=== PATIENT | female | born 1980 | race Hispanic/Latino ===

== ENCOUNTER 2017-07-15 09:15 | Day surgery (SDC) | payer BC ==
[2017-07-09 13:51] VITALS: BMI 21.0
[2017-07-15 10:04] LABS: HEMOGLOBIN 14.3 g/dL (12.0-16.0); MEAN CELL VOLUME 97.2 fl (81.0-99.0); MEAN CORPUSCULAR HEMOGLOBIN 33.3 pg (27.0-31.0); MEAN CORPUSCULAR HGB CONC 34.3 g/dL (33.0-37.0); RBC 4.29 Mil/uL (3.80-5.20); RED CELL DISTRIBUTION WIDTH 12.3 % (11.5-14.5); WHITE BLOOD COUNT 3.9 K/uL (4.8-10.8)
[2017-07-15] MEDS ORDERED: Bupivacaine HCl 0.5% PF (30 ml) Inj ONE (10:29)
[2017-07-15] MEDS ORDERED: Silver Nitrate Topical - Stick ONE (10:29)
[2017-07-15] MEDS ORDERED: Succinylcholine 200 mg/10 ml Inj IV ONE (10:44)
[2017-07-15] MEDS ORDERED: Propofol 10 mg/ml Inj (20 ML) ONE (10:44)
[2017-07-15] MEDS ORDERED: Lidocaine 2% MPF (5 ml) Inj ONE (10:44)
[2017-07-15] MEDS ORDERED: Rocuronium 10 mg/ml (5 ml) ONE (10:44)
[2017-07-15] MEDS ORDERED: Dexamethasone 4 mg/1 ml ONE ×2 (10:44→12:48)
[2017-07-15] MEDS ORDERED: Lactated Ringer's 1,000 ML IV ONE ×2 (12:20→13:40)
[2017-07-15] MEDS ORDERED: Midazolam 2 MG/2 ML VIAL ONE (12:22)
[2017-07-15] MEDS ORDERED: ePHEDrine 50 mg/ml Inj ONE (12:44)
[2017-07-15] MEDS ORDERED: Bupivacaine 0.5% Inj(30mL) IJ ONE ×2 (12:53)
[2017-07-15] MEDS ORDERED: Silver Nitrate Topical - Stick TOP ONE (14:00)
[2017-07-15] MEDS ORDERED: HYDROmorphone 0.5 mg/0.5 ml ISec IVP PRN (14:23)
[2017-07-15] MEDS ORDERED: Oxycodone/Acetaminophen 5/325 mg Tab PO PRN (14:47)
[2017-07-15] MEDS ORDERED: Oxycodone/Acetaminophen 5/325 mg Tab PO ONE (16:40)
[2017-07-15 16:48] VITALS: RESP 18
[2017-07-15 17:33] VITALS: BP 127/75; PULSE 69; TEMP 97.6; O2SAT 99
--- NOTE | 2017-07-20 15:49 | OP ---
PROCEDURE DATE: 07/15/2017 PREOPERATIVE DIAGNOSES: Pelvic pain, dysmenorrhea and dyspareunia, rule out endometriosis. POSTOPERATIVE DIAGNOSIS: Pelvic endometriosis. PROCEDURE PERFORMED: Cystoscopy with bilateral ureteral catheterization, diagnostic hysteroscopy, operative da Khloe robotic laparoscopy, excision of endometriosis, and bilateral ureterolysis. SURGEON: Haider Allen MD RUBY DEVELOPER: Naresh Wallace MD COMPLICATIONS: None. ESTIMATED BLOOD LOSS: Minimal. INDICATION FOR THE PROCEDURE: The patient is a 37-year-old female with a history of dysmenorrhea and dyspareunia. Prior to the surgery , she was counseled with regards to the risks and benefits of the procedure and a robotic surgery would identified presence of endometriosis and solve her problem. She signed the consent and she was taken to the OR. DESCRIPTION OF PROCEDURE: After adequate anesthesia was obtained, the patient was placed in the dorsal lithotomy position. She was prepped and draped with extreme care and padding in all areas prone to pressure, also extreme attention was placed in not overextended or overflexed that the patient's hips. At this point, a time-out was taken according to hospital policy and procedure was started. A cystoscope was inserted into the bladder. Bladder appeared to be in normal both ureteral ostia were then normal anatomical position. A 5-Monegasque open-ended ureteral stent was injected into the left stent all the way to the distal ureter and 5 mL of IC-Green was injected. The ureter was then retracted and ensuring the contralateral ureter, ostia, all the way to the distal ureter and 5 mL of IC-Green was then injected. At this point, the cystoscope was removed and a 16-Monegasque Mack was placed into the bladder. Attention was on the vaginal area weighted speculum was placed in the vagina. The anterior lip of the cervix was grasped and the ureter gently distended and the cavity was inspected and appearing to be in normal. Both tubal ostia were normal. At this point, attention was on the abdomen where under direct visualization, an open laparoscopy was performed and from the abdominal cavity in a sharp fashion, the trocar was then placed and under direct visualization, three additional ports were placed, left upper quadrant, left mid quadrant and right upper quadrant. At this point, the da Khloe Xi robot was docked. The laparotomy was examined and appeared to be normal. The pelvis was then examined revealing areas of suspicious of endometriosis mostly located in the left pelvic sidewall, but also in other areas. At this point, attention was first on the left side where after elevating the ovary, the retroperitoneum was entered and the peritoneum was then medialized and the left ureter lateralized and full dissection and careful of the ureter was performed the left hand side and excised a large area of peritoneum continue endometriosis to extended from left pelvic rim all the way to the left ovarian fossa. After this full excision was performed, the excision continuing the posterior cervical area by making a longitudinal line across the cervical area dissecting it down, opening the rectovaginal space, and an area of peritoneum was then excised from that area. Attention was then on the right pelvic side wall where the retroperitoneum was then entered again by grasping the peritoneum and entering into retroperitoneal space. A continued dissection was performed, utilizing fluorescence to identify the ureter and a full dissection was performed in a step by step fashion, dissecting peritoneum all the way from the pelvic rim, all the way to the ovarian fossa area with a full dissection and a sending out a swab for peritoneum containing endometriosis. Additional areas of suspicious areas were excised from the posterior cul-de-sac. An area of inflammatory type lesion in the posterior aspect of the uterus was identified and it was ablating utilizing plasma energy. At this point, it was checked for hemostasis and appeared to be excellent. Both fallopian tube appeared to be normal. The pelvis was irrigated. The da Khloe robot was undocked. The instruments were removed. The incision was closed in layer with 0 PDS for the fascia and 4-0 Monocryl for the skin. At the end of the procedure, the patient tolerated the procedure very well and was taken to recovery room in excellent condition. Haider Allen MD MAKAYLA
== END 2017-07-15 17:45 | disposition home or self-care (01) ==
LOC: H.OPSURG 09:15
PROVIDERS: ATTEND Obstetrics & Gynecology Reproductive Endocrinology
DX: N80.3 Endometriosis of pelvic peritoneum (principal); R10.2 Pelvic and perineal pain
CPT/HCPCS: 36415; 58555; 58662; 85027; 86850; 86900; 88305; C1729; J0330; J0690; J1100; J1885; J2250; J2704; J2765; J3010; J7030; J7040; J7120